=== PATIENT | male | born 1955 | race Caucasian/White ===

== ENCOUNTER → 2017-10-07 08:35 | Outpatient (CLI) | payer MEDICAID, SELFPAY ==
--- NOTE | 2017-10-07 09:00 | US_ITS ---
PROCEDURES: ULTRASOUND AORTA REASON FOR EXAM: Male, 61 years old. Follow-up abdominal aortic aneurysm. TECHNIQUE: Ultrasound evaluation of the aorta was performed with real-time and static faustin-scale imaging. COMPARISON: November 27, 2015. FINDINGS: There is mild atherosclerotic plaque formation of the abdominal aorta. Aorta measures: Proximal 2.3 cm. Middle 1.8 cm. Distal 2.6 cm. Aorta measure transversely: Proximal 2.3 cm. Middle 1. cm. Distal 2.3 cm. There is normal color Doppler wave form and velocity. Right iliac artery measures: 1.2 cm. Right iliac artery measure transversely: 1.2 cm. Left iliac artery measures: 1.1 cm. Left iliac artery measure transversely: 1.1 cm. Fusiform dilatation of the distal aorta with a maximum diameter of 2.6 x 2.3 cm.. US/Aorta IMPRESSION: Stable infrarenal abdominal aortic aneurysm. Electronically Signed: Carlo Taveras DO at 18:34 EDT Tel [phone], Service support ,
== END ==
DX: I71.4 Abdominal aortic aneurysm, without rupture (principal)
CPT/HCPCS: 76775